=== PATIENT | male | born 1945 | race African-American/Black ===

== ENCOUNTER 2023-04-08 21:13 | Emergency (ER) | payer MEDICARE, MEDICAID ==
[~2023-04-08] VITALS: Ht 182.9 cm; Wt 82.0 kg
[2023-04-08] MEDS ORDERED: CEPHALEXIN 250MG CAPSULE PO ONE (23:15)
[2023-04-08] MEDS ORDERED: HYDROCODONE/ACETAMINOPHEN 5/325MG TABLET PO ONE (23:30)
[2023-04-09] MEDS ORDERED: CEPH500T MT (00:50)
[2023-04-09 11:11] VITALS: BP 131/80
== END 2023-04-09 11:13 | disposition home or self-care (01) ==
LOC: ER 21:20
DX: S61.412A Laceration without foreign body of left hand, initial encounter (principal); W26.8XXA Contact with other sharp object(s), not elsewhere classified, initial encounter; Y93.89 Activity, other specified; Y92.89 Other specified places as the place of occurrence of the external cause; Y99.8 Other external cause status; I10 Essential (primary) hypertension; Z88.0 Allergy status to penicillin
CPT/HCPCS: 73130; 99285